=== PATIENT | female | born 1975 | race Hispanic/Latino ===

== ENCOUNTER → 2016-10-23 | Outpatient (REF) | payer SELFPAY | LOC: LAB 14:01 | PROVIDERS: ATTEND Nurse Practitioner Family | DX: R10.2 Pelvic and perineal pain (principal) | CPT/HCPCS: 87077; 87088; 87186 ==

== ENCOUNTER → 2016-11-05 | Outpatient (REF) | payer SELFPAY ==
[2016-11-05 11:55] LABS: ALBUMIN 4.6 g/dL (3.4-5.0); ANION GAP 16.4 MEQ/L (3-15); CALCULATED IONIZED CALCIUM 4.1 mg/dL (3.8-4.6); TOTAL PROTEIN 7.6 g/dL (6.4-8.5)
== END ==
LOC: LAB 11:08
PROVIDERS: ATTEND Family Medicine
DX: E04.9 Nontoxic goiter, unspecified (principal); Z13.6 Encounter for screening for cardiovascular disorders
CPT/HCPCS: 80053; 80061